=== PATIENT | female | born 1985 | race Caucasian/White ===

== ENCOUNTER 2021-03-23 17:54 | Emergency (ER) | payer OTHER, SELFPAY ==
[2021-03-23 18:05] VITALS: BP 114/68; PULSE 86; RESP 18; TEMP 36.8; O2SAT 97
--- NOTE | 2021-03-23 18:16 | ED.GENADULT ---
HPI - General Adult General Chief complaint: Upper Respiratory Infection Stated complaint: Sore Throat,Sinus Source: patient Mode of arrival: ambulatory Limitations: no limitations History of Present Illness HPI narrative: 35 y/o female. PMHx: None reported. Presents to [facility] today with acute complaints of nasal congestion and continued sore throat symptoms for > the past 1 week. Client reports concern for potential strep throat, she notes having had sinus infections before, but her throat has never hurt this much . No fever, chills. No cough, dyspnea, dysphagia, involuntary drooling. She reports no known close ill contacts or concern for Covid 19 viral type illness. She remains w/o additional acute c/o illness upon exam. Related Data Home Medications Medication Instructions Recorded Confirmed bupropion HCl 150 mg PO DAILY 03/23/21 03/23/21 Allergies Allergy/AdvReac Type Severity Reaction Status Date / Time No Known Allergies Allergy Verified 03/23/21 18:15 Review of Systems Review of Systems: CONSTITUTIONAL: Denies fever, chills, sweats. EYES: Denies visual changes, redness, discharge. ENT: Positive rhinorrhea, congestion, sore throat. No otalgia. CARDIOVASCULAR: Denies chest pain, palpitations, edema. RESPIRATORY: Denies dyspnea, wheezing, cough GASTROINTESTINAL: Denies abdominal pain, nausea, vomiting, diarrhea. GENITOURINARY: Denies dysuria, hematuria, abnormal discharge SKIN: Denies rash or itching. MUSCULOSKELETAL: Denies acute back pain, joint pain, or myalgia. NEUROLOGIC: Denies numbness, or focal weakness. PSYCHIATRIC: Denies anxiety or depression. All systems reviewed & are unremarkable except as noted in HPI and below PMFSH Family History Family History Father Patient's father is in good health Sibling Patient's brother is in good health Social History Social History Smoking status: Current every day smoker Alcohol intake: current Exam Narrative: GENERAL: This is a well-nourished, well-developed adult, in no apparent distress. HEAD: normocephalic, atraumatic. EYES: PERRL. Sclera clear/white. EARS: External ears normal, auditory canals clear and without drainage, TMs normal. NOSE: External nose normal. Positive Rhinorrhea, PND. No obstruction, nares patent. THROAT: Mucous membranes moist, posterior pharynx erythematous, no definitive exudative changes. Positive cervical lymphadenopathy. NECK: Neck supple, non-tender without lymphadenopathy, masses or thyromegaly. CARDIOVASCULAR: Regular rate and rhythm without murmurs, gallops, or rubs. RESPIRATORY: Clear to auscultation. Breath sounds equal bilaterally. No wheezes, rales, or rhonchi. GASTROINTESTINAL: Abdomen soft, non-tender, nondistended. Bowel sounds are active. No guarding. SKIN: warm, intact with no suspicious lesions or rash, good texture and turgor. NEURO: Alert, active, and age appropriate. No focal neurologic deficits. EXTREMITIES: Negative. Course Vital Signs Vital signs: Vital Signs Temperature 36.8 C 03/23/21 18:05 Pulse Rate 86 03/23/21 18:05 Respiratory Rate 18 03/23/21 18:05 Blood Pressure 114/68 03/23/21 18:05 Pulse Oximetry 97 03/23/21 18:05 Temperature 36.8 C 03/23/21 18:05 Pulse Rate 86 03/23/21 18:05 Respiratory Rate 18 03/23/21 18:05 Blood Pressure 114/68 03/23/21 18:05 Pulse Oximetry 97 03/23/21 18:05 Medical Decision Making MDM Narrative Medical decision making narrative: -No oral airway or respiratory distress, appears non-toxic. -Rapid strep in clinic is negative. However, considering physical exam findings and S/S > 1 week, will proceed with treatment for URI/Pharyngitis possibly streptococcal. -Amoxicillin as drug of choice, as directed. -May resume all additional OTC remedies for symptomatic relief. -PCP F/U 1 WK.
== END 2021-03-23 18:35 | disposition home or self-care (01) ==
PROVIDERS: Emergency Provider Nurse Practitioner Adult Health; PCP Internal Medicine
DX: J02.9 Acute pharyngitis, unspecified (principal); F17.200 Nicotine dependence, unspecified, uncomplicated
CPT/HCPCS: 87081; 87880; 99213; G0463

== ENCOUNTER 2021-06-13 10:02 | Emergency (ER) | payer OTHER, SELFPAY ==
[2021-06-13 10:20] VITALS: BP 111/92; PULSE 83; RESP 18; TEMP 36.9; O2SAT 99
--- NOTE | 2021-06-13 10:24 | ED.SKABFB ---
HPI - Skin/Abscess/Foreign Bdy General Chief complaint: Skin/Abscess/Foreign Body Stated complaint: Rash Time Seen by Provider: 06/13/21 10:24 Source: patient, RN notes reviewed and old records reviewed Mode of arrival: ambulatory Limitations: no limitations History of Present Illness HPI narrative: 35-year-old female presents with a reddened area below her nose. Has been there for couple of weeks. States she went to the [facility] and was told it was a herpes virus prescribed acyclovir. States she has been taking it but it has not gotten any better. Related Data Home Medications Medication Instructions Recorded Confirmed bupropion HCl 150 mg PO BID 03/23/21 06/13/21 Allergies Allergy/AdvReac Type Severity Reaction Status Date / Time No Known Allergies Allergy Verified 06/13/21 10:21 Review of Systems Review of Systems: All systems reviewed & are unremarkable except as noted in HPI and below Constitutional: Constitutional: Reports no additional constitutional complaints, Denies chills and Denies fever(s) Eyes: Eyes: Reports no additional eye complaints ENT: Reports system reviewed and no additional complaints, except as documented, Denies dizziness, Denies nasal congestion and Denies sore throat Cardiovascular: Cardiovascular: Reports no additional cardiovascular complaints and Denies chest pain Respiratory: Respiratory: Reports no additional respiratory complaints, Denies chest congestion, Denies cough, Denies dyspnea and Denies wheezing Gastrointestinal: Gastrointestinal: Reports no additional gastrointestinal complaints Musculoskeletal: Musculoskeletal: Reports no additional musculoskeletal complaints Integumentary/Breasts: Skin/Breast: Reports as per HPI and Reports rash (under nose) Neurologic: Reports system reviewed and no additional complaints, except as documented, Denies vertigo, Denies dizziness, Denies headache(s), Denies focal weakness and Denies numbness Psychiatric: Psychiatric: Reports no additional psychiatric complaints Allergic/Immunologic: Allergic/Immunologic: Reports no additional allergic/immunologic complaints [facility] Past Medical History Medical History (Updated 06/13/21 @ 11:00 by Ann Viveros) Depression Family History Family History Father Patient's father is in good health Sibling Patient's brother is in good health Social History Social History Smoking status: Current every day smoker Alcohol intake: current Comments At the time of my signature, I reviewed and agree with the nursing past medical, surgical, social, and family history. There is no relevant family history pertinent to the patient complaint. Exam Const: General: healthy appearing, no acute distress and alert Nutritional Appearance: well nourished Orientation/consciousness: patient oriented x3 Limitations: no limitations HENMT: Head: normal to inspection Ears: external ears normal, TM's normal bilaterally and EAC's normal Eyes: Conjunctivae: conjunctivae normal Pupils: Equal, round and reactive pupils present Neck: Neck: normal visual inspection, no lymphadenopathy and no meningeal signs Chest: Chest palpation & inspection: normal inspection of the chest Resp: Effort & Inspection: normal respiratory effort Cardio: Rate: regular rate Skin: General skin exam: normal color Rashes: rashes noted (Under nose, red without increased warmth or swelling) Wounds: no wounds Neuro: General: patient oriented x3, moves all extremities, no meningeal signs and no focal motor deficits Speech: normal speech Gait exam (Neuro): Normal gait present Extrem: General: normal to inspection and no pedal edema Psych: Appearance: grossly normal and well kempt Mental Status: mental status grossly normal Affect: normal affect Attitude: cooperative Thought content: Yes Normal thought content present Cou
== END 2021-06-13 10:41 | disposition home or self-care (01) ==
PROVIDERS: Emergency Provider Nurse Practitioner; PCP Internal Medicine
DX: R21 Rash and other nonspecific skin eruption (principal); F17.200 Nicotine dependence, unspecified, uncomplicated
CPT/HCPCS: 99213; G0463